=== PATIENT | female | born 1985 | race Caucasian/White ===

== ENCOUNTER 2016-11-22 11:04 | Emergency (ER) | payer OTHER ==
[2016-11-22 11:14] VITALS: TEMP 98.7; BMI 28.7
--- NOTE | 2016-11-22 11:59 | PDOC ---
History of Present Illness - General History Source: Patient Exam Limitations: No Limitations - History of Present Illness Initial Comments: 11/22/16 12:37 The patient is a 31-year-old woman A0, currently 9 weeks , with no past medical history who presents to the emergency department for constipation and rectal bleeding. Patient states that she has been feeling dehydrated, as she is and reports mid epigastrium pain and vomiting continuously secondary to her . She reported noting dark blood in her stool. She states she does not have any external hemorrhoids but is unaware if she has any internally. She also reports one episode of vaginal bleeding. no clots. she went to a clinic, for which she underwent an ultrasound and was normal. No sick contacts. No fever, chills, weakness, cough, shortness of breath, chest pain. 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 <Jannette Woody - Last Filed: 11/22/16 13:06> <Molly Estrada - Last Filed: 11/22/16 21:02> - General Chief Complaint: Pain Stated Complaint: Vaginal Bleeding Time Seen by Provider: 11/22/16 11:58 Past History <Jannette Woody - Last Filed: 11/22/16 13:06> - Past Medical History Other medical history: NONE - Surgical History Cholecystectomy: Yes Gastric Stapling: Yes (sleeve) - Immunization History Immunization Up to Date: Yes - Psycho/Social/Smoking Cessation Hx Anxiety: No Suicidal Ideation: No Smoking Status: Yes Smoking History: Never smoked Have you smoked in the past 12 months: Yes Number of Cigarettes Smoked Daily: 6 Hx Alcohol Use: No Drug/Substance Use Hx: No Substance Use Type: None <Molly Estrada - Last Filed: 11/22/16 21:02> - Past Medical History Allergies/Adverse Reactions: Allergies Allergy/AdvReac Type Severity Reaction Status Date / Time No Known Allergies Allergy Verified 11/22/16 11:15 Home Medications: Ambulatory Orders Omeprazole 40 mg PO PRN PRN 11/22/16 Ondansetron [Zofran -] 4 mg PO TID PRN #21 tablet 11/22/16 Review of Systems - Review of Systems Able to Perform ROS?: Yes Comments:: 11/22/16 12:37 GENERAL/CONSTITUTIONAL: No fever or chills. No weakness. HEAD, EYES, EARS, NOSE AND THROAT: No change in vision. No ear pain or discharge. No sore throat. CARDIOVASCULAR: No chest pain or shortness of breath. RESPIRATORY: No cough, wheezing, or hemoptysis. GASTROINTESTINAL: Yes: Abdominal Pain. Nausea. Vomiting. Constipation. No diarrhea GENITOURINARY: Yes: Vaginal bleeding. No dysuria, frequency, or change in urination. MUSCULOSKELETAL: No joint or muscle swelling or pain. No neck or back pain. SKIN: No rash NEUROLOGIC: No headache, vertigo, loss of consciousness, or change in strength/ sensation. ENDOCRINE: No increased thirst. No abnormal weight change. HEMATOLOGIC/LYMPHATIC: No anemia, easy bleeding, or history of blood clots. ALLERGIC/IMMUNOLOGIC: No hives or skin allergy. <Jannette Woody - Last Filed: 11/22/16 13:06> *Physical Exam - Vital Signs Last Vital Signs Temp Pulse Resp BP Pulse Ox 98.7 F 74 20 115/55 100 11/22/16 11:11 11/22/16 11:11 11/22/16 11:11 11/22/16 11:11 11/22/16 11:11 - Physical Exam Comments: 11/22/16 12:37 GENERAL: Awake, alert, and fully oriented, in no acute distress HEAD: No signs of trauma EYES: PERRLA, EOMI, sclera anicteric, conjunctiva clear ENT: Auricles normal inspection, hearing grossly normal, nares patent, oropharynx clear without exudates. Moist mucosa NECK: Normal ROM, supple, no lymphadenopathy, JVD, or masses LUNGS: Breath sounds equal, clear to auscultation bilaterally. No wheezes, and no crackles HEART: Regular rate and rhythm, normal S1 and S2, no murmurs, rubs or gallops ABDOMEN: Soft, nontender, normoactive bowel sounds. No guarding, no rebound. No masses EXTREMITIES: Normal range of motion, no edema. No clubbing or cyanosis. No cords, erythema, or tenderness NEUROLOGICAL: Cranial nerves II through XII grossly intact. Normal speech <Jannette Woody - Last Filed: 11/22/16 13:06> - Vital Signs Last Vital Signs Temp Pulse Resp BP Pulse Ox 98.7 F 74 20 115/55 100 11/22/16 11:11 11/22/16 11:11 11/22/16 11:11 11/22/16 11:11 11/22/16 11:11 - Physical Exam Comments: RECTAL: Small area of minimal swelling at the 6 o'clock position, nontender, nonindurated. No internal lesions. No stool in vault. No blood on exam. <Molly Estrada - Last Filed: 11/22/16 21:02> ED Treatment Course - LABORATORY CBC & Chemistry Diagram: 11/22/16 12:07 11/22/16 12:07 <Jannette Woody - Last Filed: 11/22/16 13:06> - LABORATORY CBC & Chemistry Diagram: 11/22/16 12:07 11/22/16 12:07 <Molly Estrada - Last Filed: 11/22/16 21:02> Medical Decision Making - Medical Decision Making Very small area of swelling noted on rectal exam. This may be the source of the bleeding, as she notes that she has had constipation since she found out she was . She states she has been straining multiple times, was not sure what to do for the constipation. She has been having morning sickness, and having difficulty keeping down her vitamins. She states she felt dehydrated on arrival, improved with IV hydration. Given lactulose for constipation (category B), and I recommended metamucil, increased fiber intake, and increased PO hydration to prevent constipation. She has already confirmed the on outpatient US. She is in the process of obtaining outpatient obstetric f/u. <Molly Estrada - Last Filed: 11/22/16 21:02> *DC/Admit/Observation/Transfer - Attestations Scribe Attestion: 11/22/16 12:38 Documentation prepared by Jannette Woody, acting as medical billing and coding specialist for Molly Estrada MD. <Jannette Woody - Last Filed: 11/22/16 13:06> - Discharge Dispostion Admit: No <Molly Estrada - Last Filed: 11/22/16 21:02> Diagnosis at time of Disposition: Constipation Qualifiers: Constipation type: unspecified constipation type Qualified Code(s): K59.00 - Constipation, unspecified - Discharge Dispostion Disposition: HOME Condition at time of disposition: Stable - Prescriptions Prescriptions: Ondansetron [Zofran -] 4 mg PO TID PRN #21 tablet PRN Reason: Nausea And/Or Vomiting - Patient Instructions Printed Discharge Instructions: DI for Constipation - Post Discharge Activity Work/School Note: Back to Work
[2016-11-22 12:32] LABS: BASOPHIL 0.7 % (0-2.0); EOSINOPHIL 0.8 % (0-4.5); MCH 28.8 pg (25.7-33.7); MCHC 33.9 g/dl (32.0-36.0); MEAN PLT VOLUME 8.9 fl (7.5-11.1); NEUTROPHILS 58.2 % (42.8-82.8); PLATELET COUNT 171 K/MM3 (134-434); RDW 14.1 % (11.6-15.6); WHITE BLOOD COUNT 6.8 K/mm3 (4.0-10.0)
[2016-11-22 12:35] LABS: URINE APPEARANCE CLEAR; URINE BILIRUBIN NEGATIVE (NEGATIVE); URINE BLOOD NEGATIVE (NEGATIVE); URINE COLOR YELLOW; URINE GLUCOSE (UA) NEGATIVE (NEGATIVE); URINE KETONE NEGATIVE (NEGATIVE); URINE LEUK ESTERASE NEGATIVE (NEGATIVE); URINE NITRITE NEGATIVE (NEGATIVE); URINE PROTEIN NEGATIVE (NEGATIVE); URINE UROBILINOGEN NEGATIVE E.U./dl (0.2-1.0)
[2016-11-22 12:53] LABS: ALBUMIN 3.6 g/dl (3.4-5.0); ANION GAP 9 (8-16); CALCIUM 8.4 mg/dL (8.5-10.1); CO2 26 mmol/L (21-32); CREATININE 0.6 mg/dL (0.55-1.02); GLUCOSE,RANDOM 103 mg/dL (74-106); SGOT/AST 12 U/L (15-37); SGPT/ALT 16 U/L (12-78)
[2016-11-22 12:55] LABS: ALK PHOS 64 U/L (45-117); BILIRUBIN,TOTAL 0.7 mg/dL (0.2-1.0); TOT PROT 7.1 g/dl (6.4-8.2)
[2016-11-22] MEDS ORDERED: LACTULOSE 20 GM/30 ML UDC (FOR ORAL USE ONLY) PO ONE (13:41)
[2016-11-22] MEDS ORDERED: LACTULOSE 20 GM/30 ML UDC (FOR ORAL USE ONLY) ONE (14:06)
[2016-11-22 14:12] VITALS: BP 101/62; PULSE 56
[2016-11-22] MEDS ORDERED: ONDANSETRON 4 MG/2 ML VIAL ONE (14:22)
[2016-11-22] MEDS ORDERED: ONDANSETRON 4 MG/2 ML VIAL IVPUSH ONE (14:22)
== END 2016-11-22 14:35 | disposition home or self-care (01) ==
LOC: JER 11:04
PROC: 3E033GC Introduction of Other Therapeutic Substance into Peripheral Vein, Percutaneous Approach (ICD-10-PCS; principal; 2016-11-22)
DX: O26.891 Other specified pregnancy related conditions, first trimester (principal); K59.00 Constipation, unspecified
CPT/HCPCS: 36415; 80053; 81003; 84702; 85025; 86850; 86900; 86901; 99283-25

== ENCOUNTER 2016-12-02 10:27 | Emergency (ER) | payer OTHER ==
[2016-12-02 10:32] VITALS: TEMP 98.4; BMI 27.3
--- NOTE | 2016-12-02 10:45 | PDOC ---
History of Present Illness - General History Source: Patient Exam Limitations: No Limitations - History of Present Illness Initial Comments: 12/02/16 11:13 The patient is a 31 year old female, A1 miscarriage 1, with a significant past medical history of termination procedure on 03/01 and discharge from [facility], presenting to the Emergency Department with dizziness and lightheadedness since discharge from hospital 2 days ago. The patient reports that she had a termination procedure on 03/01 at [facility] and was given cytotec. She states that she was discharged home, and had a syncopal episode on 03/02. She reports that she was going to work this morning when she could not stand up due to the lightheadedness. She describes the lightheadedness as exacerbated on exertion. She states that she has not had vaginal bleeding since discharge from [facility]. The patient denies history of syncopal episodes before 03/02. She admits to abdominal pain and heavy cramping. 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 The patient denies fever, chills, and cough. Patient denies chest pain, shortness of breath, and palpitations. Patient denies nausea, vomiting, and diarrhea. Patient denies headache, or visual changes. Patient denies vaginal bleeding, vaginal discharge, and dysuria. Social Hx: everyday cigarette smoker Surgical Hx: termination 03/01/17, gastric sleeve, cholecystectomy <Zulma Lyons - Last Filed: 12/02/16 14:11> <Nisha Rojas - Last Filed: 12/02/16 14:43> - General Chief Complaint: Weakness Stated Complaint: WEAKNESS, DIZZY Time Seen by Provider: 12/02/16 10:45 Past History <Zulma Lyons - Last Filed: 12/02/16 14:11> - Past Medical History Other medical history: NONE - Surgical History Cholecystectomy: Yes Gastric Stapling: Yes (sleeve) - Reproductive History (#): 4 Para: 1 - Immunization History Immunization Up to Date: Yes - Psycho/Social/Smoking Cessation Hx Anxiety: No Suicidal Ideation: No Smoking Status: Yes Smoking History: Current every day smoker Have you smoked in the past 12 months: Yes Number of Cigarettes Smoked Daily: 5 Information on smoking cessation initiated: Yes 'Breaking Loose' booklet given: 12/02/16 Hx Alcohol Use: No Drug/Substance Use Hx: No Substance Use Type: None <Nisha Rojas - Last Filed: 12/02/16 14:43> - Past Medical History Allergies/Adverse Reactions: Allergies Allergy/AdvReac Type Severity Reaction Status Date / Time No Known Allergies Allergy Verified 12/02/16 10:32 Home Medications: Ambulatory Orders Amox-Tr/K Cl [Augmentin - 875Mg Tablet] 1 tab PO BID 12/02/16 Review of Systems - Review of Systems Able to Perform ROS?: Yes Comments:: 12/02/16 11:14 CONSTITUTIONAL: Present: + lightheadedness, + dizziness Absent: fever, no chills, no fatigue EYES: Absent: visual changes ENT: Absent: ear pain, no sore throat CARDIOVASCULAR: Absent: chest pain, no palpitations RESPIRATORY: Absent: cough, no SOB GI: Present: + abdominal pain and cramping Absent: no nausea, no vomiting, no constipation, no diarrhea GENITOURINARY: Absent: dysuria, no frequency, no hematuria MUSCULOSKELETAL: Absent: back pain, no arthralgia SKIN: Absent: rash NEURO: Absent: headache <Zulma Lyons - Last Filed: 12/02/16 14:11> *Physical Exam - Vital Signs Last Vital Signs Temp Pulse Resp BP Pulse Ox 98.4 F 88 20 122/62 100 12/02/16 10:28 12/02/16 10:28 12/02/16 10:28 12/02/16 10:28 12/02/16 10:28 - Physical Exam Comments: 12/02/16 11:15 GENERAL: Well developed, well nourished. Awake and alert. No acute distress. HEENT: Normocephalic, atraumatic. PERRLA, EOMI. No conjunctival pallor. Sclera are non- icteric. Moist mucous membranes. Oropharynx is clear. NECK: Supple. Full ROM. No JVD. Carotid pulses 2+ and symmetric, without bruits. No thyromegaly. No lymphadenopathy. CARDIOVASCULAR: Regular rate and rhythm. No murmurs, rubs, or gallops. Distal pulses are 2+ and symmetric. PULMONARY: No evidence of respiratory distress. Lungs clear to auscultation bilaterally. No wheezing, rales or rhonchi. ABDOMINAL: Diffuse abdominal tenderness, worse at suprapubic area. Soft. Non-distended. No rebound or guarding. No organomegaly. Normoactive bowel sounds. MUSCULOSKELETAL: Normal range of motion at all joints. No bony deformities or tenderness. No CVA tenderness. PELVIC: Small amount of yellow discharge from os. No CMT. left sided adnexal tenderness EXTREMITIES: No cyanosis. No clubbing. No edema. No calf tenderness. SKIN: Warm and dry. Normal capillary refill. No rashes. No jaundice. NEUROLOGICAL: Alert, awake, appropriate. Cranial nerves 2-12 intact. No focal neurological deficits. <Zulma Lyons - Last Filed: 12/02/16 14:11> - Vital Signs Last Vital Signs Temp Pulse Resp BP Pulse Ox 98.4 F 88 20 122/62 100 12/02/16 10:28 12/02/16 10:28 12/02/16 10:28 12/02/16 10:28 12/02/16 10:28 <Nisha Rojas - Last Filed: 12/02/16 14:43> ED Treatment Course - LABORATORY CBC & Chemistry Diagram: 12/02/16 11:35 12/02/16 11:35 - RADIOLOGY Radiograph Interpretation: 12/02/16 14:12 Transvaginal US As reviewed by Dr. Orlando Roberts IMPRESSION: Normal thickening of the endometrial stripe that demonstrates heterogeneous echotexture and slight increase vascular flow on the color Doppler images, suspicious for retained products of conception. Close follow-up recommended. <Zulma Lyons - Last Filed: 12/02/16 14:11> - LABORATORY CBC & Chemistry Diagram: 12/02/16 11:35 12/02/16 11:35 <Nisha Rojas - Last Filed: 12/02/16 14:43> Medical Decision Making - Medical Decision Making 12/02/16 11:18 Pt presents to the ED complaining of crampy pelvic pain after diagnosed with retained products of conception post termination at [facility] on . Denies fevers, nausea and vomiting or vaginal bleeding. Differential includes retained products of conception, UTI, less likely ectopic, other intraabdominal pathology. Will check labs, BHCG and UA, will check transvaginal US to look for ectopic and retained products of conception. 12/02/16 14:36 US is suspcious for retained products of conception. Case discussed with Dr. Florentino, who states that because the patient has no signs of bleeding or infection, she can follow up on Sunday with the provider that performed the termination. Will continue augmentin and discharge home. <Nisha Rojas - Last Filed: 12/02/16 14:43> *DC/Admit/Observation/Transfer - Attestations Scribe Attestion: 12/02/16 11:16 Documentation prepared by Zulma Lyons, acting as medical transcriptionist for Nisha Rojas MD. <Zulma Lyons - Last Filed: 12/02/16 14:11> - Discharge Dispostion Admit: No <Nisha Rojas - Last Filed: 12/02/16 14:43> Diagnosis at time of Disposition: Retained products of conception - Discharge Dispostion Disposition: HOME Condition at time of disposition: Good - Patient Instructions Printed Discharge Instructions: DI for Vaginal Bleeding Additional Instructions: return immediately to the ED for severe abdominal pain, fever, nausea and vomiting, passing out, heavy vaginal bleeding passing clots or soaking 2 pads front to back per hour for two hours in a row. You need to follow up by Sunday with a rn picu. You should return to [facility] or see Dr. Florentino .
[2016-12-02] MEDS ORDERED: KETOROLAC TROMETHAMINE 30 MG/1 ML VIAL IVPUSH ONE (11:06)
[2016-12-02] MEDS ORDERED: KETOROLAC TROMETHAMINE 30 MG/1 ML VIAL ONE (11:26)
[2016-12-02 11:54] LABS: EOSINOPHIL 3.4 % (0-4.5); MCHC 34.1 g/dl (32.0-36.0); MEAN PLT VOLUME 9.5 fl (7.5-11.1); NEUTROPHILS 52.8 % (42.8-82.8); PLATELET COUNT 165 K/MM3 (134-434); RDW 13.8 % (11.6-15.6); WHITE BLOOD COUNT 6.7 K/mm3 (4.0-10.0)
[2016-12-02 12:09] LABS: ALBUMIN 3.6 g/dl (3.4-5.0); ANION GAP 7 (8-16); BILIRUBIN,TOTAL 0.5 mg/dL (0.2-1.0); CALCIUM 8.7 mg/dL (8.5-10.1); CO2 29 mmol/L (21-32); CREATININE 0.7 mg/dL (0.55-1.02); GLUCOSE,RANDOM 78 mg/dL (74-106); SGOT/AST 10 U/L (15-37); SGPT/ALT 15 U/L (12-78)
[2016-12-02 12:24] LABS: ALK PHOS 78 U/L (45-117)
[2016-12-02 12:26] LABS: INR 1.04 (0.82-1.09); PROTHROMBIN TIME (PATIENT) 11.4 SEC (9.98-11.88)
[2016-12-02 12:29] LABS: ACTIVATED PTT 31.8 SECONDS (26.9-34.4)
[2016-12-02] MEDS ORDERED: OXYCODONE/APAP 5/325MG COMBO TABLET PO ONE ×2 (12:47→15:10)
[2016-12-02 12:49] LABS: URINE APPEARANCE CLEAR; URINE BILIRUBIN NEGATIVE (NEGATIVE); URINE BLOOD NEGATIVE (NEGATIVE); URINE COLOR YELLOW; URINE GLUCOSE (UA) NEGATIVE (NEGATIVE); URINE KETONE TRACE (NEGATIVE); URINE NITRITE NEGATIVE (NEGATIVE); URINE PROTEIN NEGATIVE (NEGATIVE)
[2016-12-02] MEDS ORDERED: OXYCODONE/APAP 5/325MG COMBO TABLET ONE ×2 (12:50→15:12)
[2016-12-02 12:58] LABS: URINE LEUK ESTERASE 1+ (NEGATIVE)
[2016-12-02 13:10] LABS: URINE MUCUS FEW; URINE RBC 3 /hpf (0-3); URINE WBC 8 /hpf (3-5)
[2016-12-02 15:23] VITALS: BP 115/56; PULSE 83
--- NOTE | 2016-12-03 13:33 | EKG ---
Test Reason : Blood Pressure : / mmHG Vent. Rate : 066 BPM Atrial Rate : 066 BPM P-R Int : 132 ms QRS Dur : 080 ms QT Int : 376 ms P-R-T Axes : 017 056 048 degrees QTc Int : 394 ms NORMAL SINUS RHYTHM WITH SINUS ARRHYTHMIA NORMAL ECG NO PREVIOUS ECGS AVAILABLE Confirmed by DEE DICKEY, KRYSTYNA ([id number]) on 12/03/2016 1:32:33 PM Referred By: Confirmed By:KRYSTYNA PRICE MD
== END 2016-12-02 15:23 | disposition home or self-care (01) ==
LOC: JER 10:27
PROC: 3E0333Z Introduction of Anti-inflammatory into Peripheral Vein, Percutaneous Approach (ICD-10-PCS; principal; 2016-12-02)
DX: O03.4 Incomplete spontaneous abortion without complication (principal)
CPT/HCPCS: 36415; 76830-TC; 80053; 81003; 81015; 84702; 85025; 85610; 85730; 93005; 93010; 99283-25

== ENCOUNTER 2018-08-24 18:45 | Emergency (ER) | payer OTHER ==
[2018-08-24 19:15] VITALS: BP 125/63; PULSE 95; TEMP 98.2; BMI 26.6
--- NOTE | 2018-08-24 19:43 | PDOC ---
History of Present Illness - General Chief Complaint: Edema Stated Complaint: EDEMA Time Seen by Provider: 08/24/18 19:26 History Source: Patient Exam Limitations: No Limitations - History of Present Illness Initial Comments: 08/24/18 19:39 HISTORY OF PRESENT ILLNESS: 33-year-old woman denies past medical history presents emergency department for evaluation of bilateral leg swelling with her left worse than her right. Patient reports she started with pain in her left calf approximately one week ago and is slowly had progressive swelling in her lower legs. Patient noted the swelling in her right leg which then became painful around the Achilles tendon. Patient is on Mirena control and is a daily pack per day smoker. Patient denies any chest pain, shortness of breath, dizziness, nausea or vomiting. Patient does report having left-sided lower back pain for which she cannot identify any eliciting, aggravating or alleviating factors. She denies urinary tract symptoms, rectal bleeding, constipation, diarrhea, saddle anesthesia, incontinence of urine or bowel, history of IV drug use or cancer. No recent travel or sick contacts. PAST MEDICAL HISTORY: Denies past medical history SURGICAL HISTORY: Denies ALLERGIES: No known drug allergies REVIEW OF SYSTEMS General/Constitutional: Denies fever or chills. Denies weakness, weight change. HEENT: Denies change in vision. Denies ear pain or discharge. Denies sore throat. Cardiovascular: Denies chest pain or shortness of breath. Respiratory: Denies cough, wheezing, or hemoptysis. Gastrointestinal: Denies nausea, vomiting, diarrhea or constipation. Denies rectal bleeding. Genitourinary: Denies dysuria, frequency, or change in urination. Musculoskeletal: see HPI Skin and breasts: Denies rash or easy bruising. Neurologic: Denies headache, vertigo, loss of consciousness, or loss of sensation. Psychiatric: Denies depression or anxiety. Endocrine: Denies increased thirst. Denies abnormal weight change. Hematologic/Lymphatic: Denies anemia, easy bleeding, or history of blood clots. Allergic/Immunologic: Denies hives or skin allergy. Denies latex allergy. PHYSICAL EXAM General Appearance: Well-appearing, appropriately dressed. No apparent distress , no intoxication. Respiratory/Chest: Lungs CTAB. No shortness of breath, chest tenderness, respiratory distress, accessory muscle use. No crackles, rales, rhonchi, stridor , wheezing, dullness Cardiovascular: RRR. S1, S2. No JVD, murmur, bradycardia, tachycardia. Vascular Pulses: Dorsalis-Pedis (R): 2+, Dorsalis-Pedis (L): 2+ Musculoskeletal/Extremities: Bilateral lower extremity swelling present with left worse than right. No pitting present. Tenderness to palpation of bilateral calves left being midcalf and right being distal calf around Achilles tendon. No erythema or redness present. Skin temperature is appropriate. Palpable muscle spasm in the left paraspinous muscles in the lumbar region. Able to perform straight leg raises without difficulty. Ambulatory with steady gait. Integumentary: Appropriate color, dry, warm. No cyanosis, erythema, jaundice or rash Neurologic: talent coordinator II-XII intact. Fully oriented, alert. Appropriate mood/affect. Motor strength 5/5. No appreciable EOM palsy, facial droop or sensory deficit. Past History - Past Medical History Allergies/Adverse Reactions: Allergies Allergy/AdvReac Type Severity Reaction Status Date / Time No Known Allergies Allergy Verified 12/02/16 10:32 Home Medications: Ambulatory Orders Amox-Tr/K Cl [Augmentin - 875Mg Tablet] 1 tab PO BID 12/02/16 COPD: No - Surgical History Cholecystectomy: Yes Gastric Stapling: Yes (sleeve) - Reproductive History (#): 4 Para: 1 - Immunization History Immunization Up to Date: Yes - Suicide/Smoking/Psychosocial Hx Smoking Status: Yes Smoking History: Never smoked Have you smoked in the past 12 months: Yes Number of Cigarettes Smoked Daily: 5 'Breaking Loose' booklet given: 12/02/16 Hx Alcohol Use: No Drug/Substance Use Hx: No Substance Use Type: None *Physical Exam - Vital Signs Last Vital Signs Temp Pulse Resp BP Pulse Ox 98.2 F 95 H 17 125/63 99 08/24/18 19:11 08/24/18 19:11 08/24/18 19:11 08/24/18 19:11 08/24/18 19:11 ED Treatment Course - LABORATORY CBC & Chemistry Diagram: 08/24/18 20:36 08/24/18 20:36 - RADIOLOGY Radiology Studies Ordered: Category Date Time Status DUPLEX VASCUL US-2LEGS [US] Stat Ultrasound 08/24/18 19:38 Ordered Medical Decision Making - Medical Decision Making 08/24/18 20:15 A/P: 33-year-old woman with atraumatic bilateral lower extremity swelling with left worse than right; also with left lower back pain Concern for DVT as patient is smoker and is on hormonal control Basic labs Duplex Dopplers bilateral lower extremities Urinalysis, urine Algesia based on urine testing Reassess 08/24/18 20:55 Ultrasound as read by imaging farm operations technical director: No evidence for deep vein thrombosis. No Monique cyst. 08/24/18 21:03 Toradol 30 mg IM I discussed the physical exam findings, ancillary test results and final diagnoses with the patient. I answered all of the patient's questions. The patient was satisfied with the care received and felt comfortable with the discharge plan and treatment plan. The patient will call their primary care physician within 24 hours to arrange follow-up and will return to the Emergency Department with any new, persistent or worsening symptoms. *DC/Admit/Observation/Transfer Diagnosis at time of Disposition: Muscle spasm of back Edema Qualifiers: Edema type: unspecified Qualified Code(s): R60.9 - Edema, unspecified - Discharge Dispostion Disposition: HOME Condition at time of disposition: Stable Decision to Admit order: No - Referrals Referrals: ON STAFF,NOT [Primary Care Provider] - - Patient Instructions Additional Instructions: Stop smoking. Take Naprosyn 2-220 mg tablets every 12 hours as needed for pain. Warm moist heat applied to your lower back may help alleviate the spasm. Avoid chiropractic or massage therapy until spasm has resolved. Make an appointment to primary doctor for repeat evaluation. Return to emergency department for worsening swelling, shortness of breath, chest pain, dizziness or for any other concerns. Thank you very much for choosing us to provide your emergent health care needs. - Post Discharge Activity
[2018-08-24 20:02] LABS: HCG,QUALITATIVE URINE Negative
[2018-08-24 20:16] LABS: URINE APPEARANCE CLEAR; URINE BILIRUBIN NEGATIVE (NEGATIVE); URINE COLOR YELLOW; URINE GLUCOSE (UA) NEGATIVE (NEGATIVE); URINE KETONE TRACE (NEGATIVE); URINE LEUK ESTERASE NEGATIVE (NEGATIVE); URINE NITRITE NEGATIVE (NEGATIVE); URINE PROTEIN NEGATIVE (NEGATIVE); URINE UROBILINOGEN 0.2 mg/dL (0.2-1.0)
[2018-08-24 20:44] LABS: BASO % 0.9 % (0-2.0); EOS % 2.3 % (0-4.5); HEMATOCRIT 37.2 % (32.4-45.2); HEMOGLOBIN 12.1 GM/dL (10.7-15.3); LYMPH % 52.6 % (8-40); MCH 27.2 pg (25.7-33.7); MCHC 32.6 g/dl (32.0-36.0); MEAN CELL VOLUME 83.3 fl (80-96); MEAN PLT VOLUME 9.1 fl (7.5-11.1); MONO % 7.7 % (3.8-10.2); NEUT % 36.5 % (42.8-82.8); PLATELET COUNT 225 K/MM3 (134-434); RBC 4.47 M/mm3 (3.60-5.2); RDW 15.3 % (11.6-15.6); WHITE BLOOD COUNT 7.1 K/mm3 (4.0-10.0)
[2018-08-24 20:57] LABS: PROTHROMBIN TIME (PATIENT) 11.8 SEC (9.7-13.0)
[2018-08-24] MEDS ORDERED: KETOROLAC TROMETHAMINE 30 MG/1 ML VIAL IM ONE (21:00)
[2018-08-24 21:17] LABS: ALBUMIN 3.2 g/dl (3.4-5.0); ALK PHOS 83 U/L (45-117); ANION GAP 5 MMOL/L (8-16); BILIRUBIN,TOTAL 0.3 mg/dL (0.2-1); BLOOD UREA NITROGEN 16 mg/dL (7-18); CALCIUM 8.2 mg/dL (8.5-10.1); CHLORIDE 108 mmol/L (98-107); CO2 27 mmol/L (21-32); CREATININE 0.7 mg/dL (0.55-1.3); GLUCOSE,RANDOM 86 mg/dL (74-106); POTASSIUM 3.8 mmol/L (3.5-5.1); SGOT/AST 10 U/L (15-37); SGPT/ALT 14 U/L (13-61); SODIUM 139 mmol/L (136-145); TOT PROT 6.8 g/dl (6.4-8.2)
[2018-08-24] MEDS ORDERED: KETOROLAC TROMETHAMINE 30 MG/1 ML VIAL ONE (21:29)
== END 2018-08-24 21:33 | disposition home or self-care (01) ==
LOC: JER 18:45 → SUPCPDRO 18:45 → JER 21:33
PROC: 3E0233Z Introduction of Anti-inflammatory into Muscle, Percutaneous Approach (ICD-10-PCS; principal; 2018-08-24)
DX: R60.0 Localized edema (principal); M62.830 Muscle spasm of back; Z79.3 Long term (current) use of hormonal contraceptives; F17.210 Nicotine dependence, cigarettes, uncomplicated
CPT/HCPCS: 36415; 80053; 81003; 84703; 85025; 85610; 93970-TC; 99282-25

== ENCOUNTER 2018-12-10 18:22 | Emergency (ER) | payer OTHER ==
--- NOTE | 2018-12-10 18:46 | PDOC ---
Rapid Medical Evaluation Time Seen by Provider: 12/10/18 18:43 Medical Evaluation: Allergies Allergy/AdvReac Type Severity Reaction Status Date / Time No Known Allergies Allergy Verified 08/24/18 21:27 12/10/18 18:45 HPI: R leg swelling x 5 months PE: No gross deficits ORDERS: Nothing Discharge Disposition - Diagnosis Leg pain - Referrals - Patient Instructions - Post Discharge Activity
[2018-12-10 18:55] VITALS: BMI 25.8
--- NOTE | 2018-12-10 21:15 | PDOC ---
*Physical Exam - Vital Signs Last Vital Signs Temp Pulse Resp BP Pulse Ox 98.5 F 64 20 118/71 99 12/10/18 18:53 12/10/18 18:53 12/10/18 18:53 12/10/18 18:53 12/10/18 18:53 Medical Decision Making - Medical Decision Making 12/10/18 21:15 Patient seen by the advanced practice provider under my direct supervision. Ancillary testing reviewed as necessary. I agree with plan as outlined by the advanced practice provider. *DC/Admit/Observation/Transfer Diagnosis at time of Disposition: Leg pain - Referrals Referrals: ON STAFF,NOT [Primary Care Provider] - - Patient Instructions - Post Discharge Activity
[2018-12-10 21:52] LABS: BASO % 0.8 % (0-2.0); EOS % 1.9 % (0-4.5); HEMATOCRIT 37.2 % (32.4-45.2); HEMOGLOBIN 12.4 GM/dL (10.7-15.3); LYMPH % 52.2 % (8-40); MCH 27.9 pg (25.7-33.7); MCHC 33.3 g/dl (32.0-36.0); MEAN CELL VOLUME 83.7 fl (80-96); MEAN PLT VOLUME 9.5 fl (7.5-11.1); MONO % 8.2 % (3.8-10.2); NEUT % 36.9 % (42.8-82.8); PLATELET COUNT 236 K/MM3 (134-434); RBC 4.44 M/mm3 (3.60-5.2); RDW 14.7 % (11.6-15.6); WHITE BLOOD COUNT 6.3 K/mm3 (4.0-10.0)
[2018-12-10 22:05] LABS: ALBUMIN 3.4 g/dl (3.4-5.0); BILIRUBIN,TOTAL 0.3 mg/dL (0.2-1); BLOOD UREA NITROGEN 9.6 mg/dL (7-18); CALCIUM 8.5 mg/dL (8.5-10.1); CREATININE 0.7 mg/dL (0.55-1.3); TOT PROT 6.8 g/dl (6.4-8.2)
[2018-12-10] MEDS ORDERED: KETOROLAC TROMETHAMINE 30 MG/1 ML VIAL IM ONE (22:43)
--- NOTE | 2018-12-10 22:58 | PDOC ---
History of Present Illness - General Chief Complaint: Pain, Acute Stated Complaint: LEG SWELLING Time Seen by Provider: 12/10/18 18:43 History Source: Patient - History of Present Illness Initial Comments: 12/10/18 22:40 33 year old female c/o b/l lower extremity edema and calf pain. patient had two US negative for DVT at this hospit[facility]l and OSH. patient reports that she was referred to vascular surgery pending appointment date. patient reports feeling nodules in her calf. denies chest pain , SOB reports that 12/10/18 22:44 Past History - Past Medical History Allergies/Adverse Reactions: Allergies Allergy/AdvReac Type Severity Reaction Status Date / Time No Known Allergies Allergy Verified 12/10/18 18:52 Home Medications: Ambulatory Orders Dextroamphetamine/Amphetamine [Adderall Xr 20 mg Capsule] 20 mg PO DAILY Dextroamphetamine/Amphetamine [Adderall Xr 30 mg Capsule] 30 mg PO DAILY Naproxen 500 mg PO BID #10 tablet 12/10/18 COPD: No - Surgical History Cholecystectomy: Yes Gastric Stapling: Yes (sleeve) - Reproductive History (#): 4 Para: 1 - Immunization History Immunization Up to Date: Yes - Suicide/Smoking/Psychosocial Hx Smoking Status: Yes Smoking History: Never smoked Have you smoked in the past 12 months: Yes Number of Cigarettes Smoked Daily: 5 'Breaking Loose' booklet given: 12/02/16 Hx Alcohol Use: No Drug/Substance Use Hx: No Substance Use Type: None *Physical Exam - Vital Signs Last Vital Signs Temp Pulse Resp BP Pulse Ox 98.5 F 64 20 118/71 99 12/10/18 18:53 12/10/18 18:53 12/10/18 18:53 12/10/18 18:53 12/10/18 18:53 - Physical Exam General Appearance: Yes: Appropriately Dressed Respiratory/Chest: positive: Lungs Clear, Normal Breath Sounds Extremity: positive: Normal Capillary Refill, Normal Inspection, Normal Range of Motion, Calf Tenderness (right > left ) Integumentary: positive: Normal Color, Dry, Warm 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 NML intact, Fully Oriented, Alert, Normal Mood/ Affect ED Treatment Course - LABORATORY CBC & Chemistry Diagram: 12/10/18 21:30 12/10/18 21:30 - ADDITIONAL ORDERS Additional order review: Laboratory Results 12/10/18 12/10/18 21:30 21:30 D-Dimer 324 Sodium 140 Potassium 4.0 Chloride 108 H Carbon Dioxide 27 Anion Gap 5 L BUN 9.6 Creatinine 0.7 Est GFR (CKD-EPI)AfAm 131.94 Est GFR (CKD-EPI)NonAf 113.84 Random Glucose 82 Calcium 8.5 Total Bilirubin 0.3 AST 13 L ALT 19 Alkaline Phosphatase 74 Total Protein 6.8 Albumin 3.4 12/10/18 21:30 RBC 4.44 MCV 83.7 MCHC 33.3 RDW 14.7 MPV 9.5 Neutrophils % 36.9 L Lymphocytes % 52.2 H Monocytes % 8.2 Eosinophils % 1.9 Basophils % 0.8 - RADIOLOGY Radiology Studies Ordered: Category Date Time Status DUPLEX VASCUL US-1 LEG [US] Stat Ultrasound 12/10/18 21:40 Completed Progress Note - Progress Note Progress Note: A: chronic leg pain P: labs US: negative for DVT pain control outpatient vascular surgery compression stockings *DC/Admit/Observation/Transfer Diagnosis at time of Disposition: Leg pain Qualifiers: Laterality: bilateral Qualified Code(s): M79.604 - Pain in right leg Chronic leg pain Qualifiers: Laterality: bilateral Qualified Code(s): M79.604 - Pain in right leg - Discharge Dispostion Disposition: HOME - Prescriptions Prescriptions: Naproxen 500 mg PO BID #10 tablet - Referrals Referrals: ON STAFF,NOT [Primary Care Provider] - Prieto Nguyen DO [Staff Physician] - Call tomorrow - Patient Instructions Printed Discharge Instructions: DI for Leg Pain Additional Instructions: elevate your legs as much as possible take naproxen as prescribed follow up with a vascular doctor as soon as possible. Additional Instructions: * Please call your personal physician to report your Emergency Department visit and to report your progress, if any. * If there is no improvement in symptoms in 2 days call your physician. * Return to the Emergency Department for any worsening symptoms. - Post Discharge Activity Forms/Work/School Notes: Back to Work
[2018-12-10] MEDS ORDERED: KETOROLAC TROMETHAMINE 30 MG/1 ML VIAL ONE (23:02)
[2018-12-10 23:48] VITALS: BP 103/43; PULSE 55; TEMP 98.6
== END 2018-12-10 23:48 | disposition home or self-care (01) ==
LOC: JER 18:22
PROC: 3E0233Z Introduction of Anti-inflammatory into Muscle, Percutaneous Approach (ICD-10-PCS; principal; 2018-12-10)
DX: M79.604 Pain in right leg (principal); M79.605 Pain in left leg; Z98.84 Bariatric surgery status
CPT/HCPCS: 36415; 80053; 84703; 85025; 85379; 93971-TC; 99282-25

== ENCOUNTER 2023-08-14 17:55 | Emergency (ER) | payer OTHER ==
[2023-08-14 18:05] VITALS: BP 119/78; PULSE 61; RESP 20; TEMP 98.2; BMI 32.6
[2023-08-14 19:20] LABS: EOS % 1.7 % (0-4.5); HEMATOCRIT 41.3 % (32.4-45.2); LYMPH % 38.8 % (8-40); MCH 27.1 pg (25.7-33.7); MCHC 33.9 g/dl (32.0-36.0); MEAN CELL VOLUME 79.8 fl (80-96); MEAN PLT VOLUME 9.3 fl (7.5-11.1); MONO % 6.3 % (3.8-10.2); NEUT % 52.2 % (42.8-82.8); PLATELET COUNT 291 10^3/uL (134-434); RBC 5.18 M/mm3 (3.60-5.2); RDW 14.9 % (11.6-15.6); WHITE BLOOD COUNT 7.6 K/mm3 (4.0-10.0)
[2023-08-14 19:27] LABS: INR 1.07 (0.83-1.09); PROTHROMBIN TIME (PATIENT) 12.4 SEC (9.7-13.0)
[2023-08-14 19:30] LABS: ACTIVATED PTT 32.4 SECONDS (25.2-36.5)
[2023-08-14 19:49] LABS: POTASSIUM 3.6 mmol/L (3.5-5.1)
[2023-08-14 19:51] LABS: BLOOD UREA NITROGEN 10.7 mg/dL (7-18); CALCIUM 8.8 mg/dL (8.5-10.1)
[2023-08-14 19:55] LABS: CREATININE 0.8 mg/dL (0.55-1.3)
== END 2023-08-14 20:08 | disposition home or self-care (01) ==
LOC: JERFT 17:55
DX: M79.641 Pain in right hand (principal); M79.642 Pain in left hand; M79.661 Pain in right lower leg
CPT/HCPCS: 36415; 80048; 84703; 85025; 85379; 85610; 85730; 99283-25

== ENCOUNTER 2023-08-26 07:11 | Emergency (ER) | payer OTHER ==
[2023-08-26 07:24] VITALS: BP 120/66; PULSE 71; RESP 18; TEMP 98.1; BMI 32.6
== END 2023-08-26 08:59 | disposition left against medical advice (07) ==
LOC: JER 07:11
DX: M25.571 Pain in right ankle and joints of right foot (principal); M79.661 Pain in right lower leg; M79.641 Pain in right hand; M79.642 Pain in left hand; I87.8 Other specified disorders of veins
CPT/HCPCS: 99281-25